=== PATIENT | female | born 1990 | race African-American/Black ===

== ENCOUNTER → 2017-04-12 13:29 | Emergency (ER) | payer SELFPAY | END | disposition left against medical advice (07) | LOC: ED 13:29 | DX: R07.9 Chest pain, unspecified (principal); Z53.21 Procedure and treatment not carried out due to patient leaving prior to being seen by health care provider ==

== ENCOUNTER 2017-09-30 17:13 | Emergency (ER) | payer SELFPAY ==
[2017-09-30 19:03] VITALS: BP 115/75
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
== END 2017-09-30 18:50 | disposition home or self-care (01) ==
LOC: ED 17:13
DX: S06.0X9A Concussion with loss of consciousness of unspecified duration, initial encounter (principal); Y04.0XXA Assault by unarmed brawl or fight, initial encounter; Y92.9 Unspecified place or not applicable; F17.210 Nicotine dependence, cigarettes, uncomplicated
CPT/HCPCS: 99281

== ENCOUNTER 2017-10-10 11:22 | Emergency (ER) | payer SELFPAY ==
[2017-10-10 11:27] VITALS: BP 129/82
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
== END 2017-10-10 11:52 | disposition home or self-care (01) ==
LOC: ED 11:22
DX: R51 Headache (principal); F17.210 Nicotine dependence, cigarettes, uncomplicated; Z87.820 Personal history of traumatic brain injury
CPT/HCPCS: 99282

== ENCOUNTER 2018-11-30 13:47 | Emergency (ER) | payer OTHER ==
--- NOTE | 2018-11-30 14:39 | ED ---
Shortness of Breath - HPI Summary HPI Summary: This patient is a 28 year old female presenting to [facility] with a chief complaint of SOB and right rib pain since 4 days ago. Patient states that she originally thought that she was going through a bout of allergies, but comes to the EMS due to rib pain manifesting and not disappearing. The pain is rated 6/10 in severity. Symptoms aggravated by deep breaths. Symptoms alleviated by nothing. Patient additionally reports rhinorrhea, cough. Patient denies sore throat - History of Current Complaint Chief Complaint: EDShortnessOfBreath Time Seen by Provider: 11/30/18 14:18 Hx Obtained From: Patient Onset/Duration: Lasting Days, Still Present Timing: Constant Current Severity: Moderate Dyspnea At: Rest Aggrevating Factors: Deep Breaths Alleviating Factors: Nothing Associated Signs & Symptoms: Negative - sore throat, Cough (Nonproductive), Nasal Congestion - Allergy/Home Medications Allergies/Adverse Reactions: Allergies Allergy/AdvReac Type Severity Reaction Status Date / Time No Known Allergies Allergy Verified 11/30/18 13:53 PMH/Surg Hx/FS Hx/Imm Hx Previously Healthy: Yes Endocrine/Hematology History: Denies: Hx Anticoagulant Therapy, Hx Diabetes Cardiovascular History: Denies: Hx Hypertension Respiratory History: Denies: Hx Asthma Sensory History: Denies: Hx Legally Blind, Hx Deafness Opthamlomology History: Denies: Hx Legally Blind - Surgical History Surgery Procedure, Year, and Place: Open arm surgery Infectious Disease History: No Infectious Disease History: Denies: Traveled Outside the [place] in Last 30 Days - Family History Known Family History: Positive: Other - ETOH syndrome, [place] - Social History Lives: With Family Alcohol Use: Occasionally Hx Substance Use: No Substance Use Type: Reports: None Hx Tobacco Use: Yes Smoking Status (MU): Heavy Every Day Tobacco Smoker Type: Cigarettes Amount Used/How Often: 2 CIG/DAY Review of Systems Negative: Fever Positive: Nasal Discharge. Negative: Sore Throat Positive: Shortness Of Breath, Cough Positive: Other - right rib pain All Other Systems Reviewed And Are Negative: Yes Physical Exam - Summary Physical Exam Summary: Appearance: well appearing, no pain distress Skin: warm, dry, reflects adequate perfusion Head/face: normal Eyes: EOMI, MANPREET ENT: mucous membranes moist. Clear nasal discharge Neck: supple, non-tender Respiratory: Splinted respiration, Lungs are clear, no wheeze. Tender to right lower anterolateral ribs Cardiovascular: RRR, pulses symmetrical Abdomen: non-tender, soft Bowel Sounds: present Musculoskeletal: normal, strength/ROM intact Neuro: normal, sensory motor intact, A&Ox3 Triage Information Reviewed: Yes Vital Signs On Initial Exam: Initial Vitals Temp Pulse Resp BP Pulse Ox 97.1 F 64 16 100/65 100 11/30/18 13:54 11/30/18 13:54 11/30/18 13:54 11/30/18 13:54 11/30/18 13:54 Vital Signs Reviewed: Yes Diagnostics - Vital Signs Vital Signs Temp Pulse Resp BP Pulse Ox 11/30/18 14:22 65 99 11/30/18 14:21 58 111/76 100 11/30/18 13:54 97.1 F 64 16 100/65 100 - Laboratory Lab Statement: Any lab studies that have been ordered have been reviewed, and results considered in the medical decision making process. - Radiology CXR Radiology Interpretation Completed By: Radiologist Summary of Radiographic Findings: CXR reveals, per radiologist, IMPRESSION: NO ACTIVE CARDIOPULMONARY DISEASE. ED physician has reviewed this radiology report. Course/Dx - Course Course Of Treatment: Nurse's notes reviewed. Patient with chest wall pain improved with oral NSAID. Chest x-ray negative for fracture, pneumothorax or infiltrate. Likely associated muscle strain from bronchitis. Breathing treatment help. Discharged to follow up primary care. PERC applies. - Diagnoses Differential Diagnosis/HQI/PQRI: Positive: Bronchitis, Chest Wall Pain, Pneumonia, Pneumothorax, Pulmonary Edema Provider Diagnoses: Bronchitis, Strain of chest wall Discharge - Sign-Out/Discharge Documenting (check all that apply): Patient Departure Patient Received Moderate/Deep Sedation with Procedure: No - Discharge Plan Condition: Improved Disposition: HOME Prescriptions: Ibuprofen TAB* [Motrin TAB* 400 MG] 400 mg PO Q8H PRN #20 tab PRN Reason: Pain Metaxalone TAB* [Skelaxin TAB*] 800 mg PO TID PRN #20 tab PRN Reason: muscle pain predniSONE TAB* [Deltasone 20 MG TAB*] 20 mg PO DAILY #40 tab Patient Education Materials: Acute Bronchitis (ED), Chest Wall Pain (ED) Referrals: [facility] [Outside] [facility] [place] [facility] [place] [facility] [Outside] Additional Instructions: Ice to the area. Deep breathing exercises every half hour. Call on Sunday to schedule follow-up with the [facility]. Also you have been given referral phone number for a primary care physician. Return with difficulty breathing, high fever, new symptoms or other concerns. - Billing Disposition and Condition Condition: IMPROVED Disposition: Home - Attestation Statements Document Initiated by [place]: Yes Documenting Scribe: Aisha Foster Provider For Whom Socorro is Documenting (Include Credential): Kendrick Vegas MD Scribe Attestation: IAisha, scribed for Kendrick Vegas MD on 11/30/18 at 1831. Scribe Documentation Reviewed: Yes Provider Attestation: The documentation as recorded by the Aisha preston accurately reflects the service I personally performed and the decisions made by , Kendrick Vegas MD Status of Scrlex Document: Viewed
[2018-11-30] MEDS ORDERED: Ibuprofen TAB* 400 MG PO ONE (14:48)
[2018-11-30] MEDS ORDERED: traMADol TAB* 50 MG PO ONE (14:48)
[2018-11-30 15:01] VITALS: BP 115/57
== END 2018-11-30 15:00 | disposition home or self-care (01) ==
LOC: ED 13:47
DX: S29.011A Strain of muscle and tendon of front wall of thorax, initial encounter (principal); X58.XXXA Exposure to other specified factors, initial encounter; J40 Bronchitis, not specified as acute or chronic; F17.210 Nicotine dependence, cigarettes, uncomplicated
CPT/HCPCS: 71046; 99282; A9270-GY